=== PATIENT | male | born 1965 | race Native Hawaiian/Other Pacific Islander ===

== ENCOUNTER 2022-06-12 14:00 | Emergency (ER) | payer OTHER ==
[~2022-06-12] VITALS: Ht 190.5 cm; Wt 128.4 kg
[2022-06-12 14:05] VITALS: BP 179/84; TEMP 97.2
[2022-06-12 14:46] LABS: POTASSIUM 3.6 mmol/L (3.6-5.2)
[2022-06-12 15:01] LABS: PLATELET COUNT 219 K/uL (142-355)
[2022-06-12] MEDS ORDERED: TYLENOL325 MG PO (17:17)
[2022-06-12] MEDS ORDERED: AVEENO DAILY M TOP (17:18)
[2022-06-12] MEDS ORDERED: VITAMIN DE1000 MCG/M IM (17:19)
[2022-06-12] MEDS ORDERED: PERIDEX0.12 % MT (17:20)
== END 2022-06-12 15:20 | disposition still patient (30) ==
LOC: ED 14:00
PROVIDERS: Family Medicine
DX: F33.8 Other recurrent depressive disorders (principal); R73.9 Hyperglycemia, unspecified; Z11.52 Encounter for screening for COVID-19; Z04.6 Encounter for general psychiatric examination, requested by authority
CPT/HCPCS: 36415; 80053; 85027; 87635; 93005; 99283; J2060; U0003